=== PATIENT | female | born 1960 | race American Indian/Alaskan Native ===

== ENCOUNTER 2018-02-27 12:40 | Day surgery (SDC) | payer OTHER ==
[2018-02-27] MEDS ORDERED: NACL 0.9% 1000 ML 1,000 ML ONE (13:56)
[2018-02-27] MEDS ORDERED: NACL 0.9% 1000 ML 1,000 ML IV SCH (14:00)
--- NOTE | 2018-02-27 14:36 | Anesthesia Consultation ---
Anesthesia Consult and Med Hx Date of service: 02/27/18 - Airway Anesthetic Teeth Evaluation: Chipped (some chipped teeth in the back) ROM Head & Neck: Adequate Mental/Hyoid Distance: Adequate Mallampati Class: Class II - Pre-Operative Health Status ASA Pre-Surgery Classification: ASA2 Proposed Anesthetic Plan: MAC - Cardiovascular System Hx Hypertension: Yes Hx Coronary Artery Disease: No (high cholesterol) - Other Systems Hx Cancer: No Hx Obesity: Yes (BMI 35.3)
--- NOTE | 2018-02-27 14:36 | Anesthesia Day of Surgery ---
Anesthesia Day of Surgery - Day of Surgery Patient Examined: Yes Patient H&P Reviewed: Yes Patient is NPO: Yes
[2018-02-27] MEDS ORDERED: DIPRIVAN 10 MG/ML IV ONE ×3 (16:08→16:22)
--- NOTE | 2018-02-27 17:01 | Post Anesthesia Evaluation ---
- Post Anesthesia Evaluation Patient Participated: Yes Airway Patent: Yes Stable Respiratory Function: Yes Nausea/Vomiting: Yes Temp > 96.8F: Yes Pain Manageable: Yes Adequeate Hydration: Yes Anesthesia Complications: No Block Receding Appropriately: Not Applicable Patient on Ventilator: No
[2018-02-27 17:13] VITALS: BP 112/78
--- NOTE | 2018-02-27 19:20 | Discharge Summary ---
Short Stay Discharge Plan Weight Bearing Status: Weight Bear as Tolerated Diet: regular Additional Instructions: Post Sedation D/C Instructions When you return home you may resume your regular diet unless otherwise directed. -Go directly home from the hospital and rest quietly. You may resume normal activities tomorrow. -Do NOT drive, return to work, operate any machinery or make any important personal or business decisions today. -Do NOT drink any alcohol or take nerve or sleeping drugs. They add to the effects of the medicine still present in your body. CALL FOR F/U APPT. Follow up with: SAMMY NOLAND MD [Primary Care Provider] - 7 Days
--- NOTE | 2018-02-27 19:20 | Operative Report ---
Operative Report Operative Report: 02/27/2018 Procedure: Colonoscopy with multiple hot biopsy polypectomies, polyp ablations. Attending physician: Titus Gill MD [employer] Arrays: Titus Gill MD Indication: Patient is a 57-year-old female who presents for screening colonoscopy. A colonoscopy service to evaluate patient for colorectal cancer screening.. Consent: Informed consent was obtained after advising the patient and family regarding nature of this procedure, its indications, potential benefits as well as possible complications including but not limited to bleeding perforation and adverse reaction to medication, infection as well as other cardiopulmonary complications. An informed written and verbal consent was then obtained after due opportunity was provided for questions and answers. Monitoring: Patient was monitored continuously with pulse oximetry and electrocardiographic recordings as well as blood pressure recordings. Vital signs remained stable throughout this procedure with no untoward events. Preoperative assessment: Patient was assessed immediately prior to this procedure for capacity to tolerate monitored anesthesia care and moderate sedation as well as general anesthesia. Patient's ASA classification is 2, Mallampati class is 2, Hyomental distance is 3. Instrument: Streamixn video colonoscope Medications: Propofol given intravenously in divided doses. For details please refer to anesthesia records. Description of procedure: Patient was placed in the left lateral decubitus position after achieving sedation, a digital rectal examination was performed following which the colonoscope was introduced into the anal verge and advanced to the cecum which was identified by the cecal valve, the appendiceal orifice, as well as by the cecal strap and direct transillumination. The colonoscope was subsequently withdrawn with careful inspection of all mucosal surfaces. Patient tolerated this procedure well and was subsequently taken to the recovery room. The following findings were noted. Findings: Patient had 7 diminutive polyps in the transverse colon measuring 3-5 mm. These were removed sequentially by hot biopsy polypectomy. All polyp specimens were then retrieved. Patient had 1 flat polyp in the descending colon. This measured approximately 4-5 mm. It was removed by hot biopsy polypectomy and retrieved. Patient had multiple diminutive polyps in the sigmoid colon which were ablated. Patient had 3 polyps also in the sigmoid colon measuring 4-5 mm which were removed by hot biopsy polypectomy and retrieved. Patient had a few scattered diverticula in the sigmoid and descending colon. The ascending colon and cecum were normal. The rectum was normal. On the retroflex view at the anal verge, patient had internal hemorrhoids. Impression: Multiple transverse colon polyp status post hot biopsy polypectomy. Descending colon polyp status post hot biopsy polypectomy. Multiple sigmoid colon polyps status post hot biopsy polypectomy. Multiple sigmoid colon polyps status post ablation. Diverticulosis of the colon. Internal hemorrhoids. Plan: Follow pathology report. High-fiber diet. Repeat colonoscopy in 1 year if the polyps are adenomatous..
== END 2018-02-27 17:10 | disposition home or self-care (01) ==
LOC: GIO 12:40
PROVIDERS: ATTEND Internal Medicine Gastroenterology
DX: Z12.11 Encounter for screening for malignant neoplasm of colon (principal); K63.89 Other specified diseases of intestine; K63.5 Polyp of colon; K57.30 Diverticulosis of large intestine without perforation or abscess without bleeding; K64.8 Other hemorrhoids; E66.9 Obesity, unspecified; I10 Essential (primary) hypertension; E78.00 Pure hypercholesterolemia, unspecified; Z88.0 Allergy status to penicillin; Z88.8 Allergy status to other drugs, medicaments and biological substances; Z98.890 Other specified postprocedural states; Z68.35 Body mass index [BMI] 35.0-35.9, adult
CPT/HCPCS: 45384; 45388; 88305; J2704; J7030

== ENCOUNTER 2022-01-25 14:17 | Emergency (ER) | payer OTHER ==
[2022-01-25] MEDS ORDERED: cloNIDine 0.2 MG TAB PO ONE (19:40)
--- NOTE | 2022-01-25 19:45 | Emergency Department Report ---
HPI - General Chief Complaint: High BP Time Seen by Provider: 01/25/22 19:27 - HPI HPI: MSE 5 The patient is a 61-year-old female present with a chief complaint of anxiety. Patient states she has been suffering from anxiety intermittently since 2018. The patient states over the weekend she had some of her same symptoms. Patient states she feels tingling diffusely but greater on the left side over the weekend as well as a tension headache. Patient states she has been under a lot of stress lately caring after her and brother. Patient states she has not been getting much sleep lately. Patient states "my body felt real tense." The patient states she checked her pulse ox and her sat was 97% on room air but her heart rate had gone up to 112 bpm before resolved. Patient currently denies complaints stating she feels "all right." ED Past Medical Hx - Past Medical History Hx Hypertension: Yes Hx Arthritis: Yes (? KNEES) Hx Psychiatric Treatment: Yes (Anxiety) Additional medical history: Postmenopausal 7 years - Surgical History Past Surgical History?: No Additional Surgical History: C section - Family History Family history: no significant - Social History Smoking Status: Never Smoker Substance Use Type: None (Denies illicit drug use) - Medications Home Medications: Home Medications Medication Instructions Recorded Confirmed Last Taken Type [place]-3/Dha/Epa/Fish Oil [Fish Oil 1 each PO DAILY PRN 02/27/18 05/07/20 5 Days Ago History 1,000 mg Softgel] ~02/22/18 Simvastatin 40 mg PO QHS 05/06/20 05/07/20 Unknown History Acetaminophen [Acetaminophen TAB] 650 mg PO Q4H PRN tablet 05/09/20 Unknown Rx dexAMETHasone [Decadron] 6 mg PO DAILY #5 tablet 05/09/20 Unknown Rx hydrOXYzine PAMOATE [Vistaril] 50 mg PO Q6HR PRN #20 capsule 01/25/22 Unknown R x ED Review of Systems ROS: Stated complaint: RAPID HEART RATE/NUMBNESS LT SIDE Other details as noted in HPI Constitutional: no symptoms reported Eyes: denies: eye pain ENT: denies: throat pain Respiratory: no symptoms reported Cardiovascular: palpitations Endocrine: no symptoms reported Gastrointestinal: denies: nausea, vomiting Genitourinary: denies: dysuria Musculoskeletal: denies: back pain Neurological: headache, paresthesias Physical Exam - Physical Exam Vital Signs: Vital Signs 01/25/22 15:59 Temperature 98.0 F Pulse Rate 64 Respiratory 20 Rate Blood Pressure 182/81 O2 Sat by Pulse 98 Oximetry Vital Signs 01/25/22 01/25/22 01/25/22 15:59 19:59 21:27 Temperature 98.0 F Pulse Rate 64 63 88 Respiratory 20 Rate Blood Pressure 182/81 187/90 Blood Pressure 120/71 [Left] O2 Sat by Pulse 98 Oximetry Physical Exam: GENERAL: The patient is well-developed well-nourished female sitting in chair not appearing to be in acute distress HEENT: Normocephalic. Atraumatic. Extraocular motions are intact. Patient has moist mucous membranes. NECK: Supple. No meningitic signs are noted. Trachea midline CHEST/LUNGS: Clear to auscultation. There is no respiratory distress noted. HEART/CARDIOVASCULAR: Regular. There is no tachycardia. There is no gallop rub or murmur. ABDOMEN: Abdomen is soft, nontender. Patient has normal bowel sounds. There is no abdominal distention. SKIN: There is no rash. There is no edema. There is no diaphoresis. NEURO: The patient is awake, alert, and oriented. The patient is cooperative. The patient has no focal neurologic deficits. The patient has normal speech. Cranial nerves II through XII grossly intact. GCS 15. NIHSS= 0 MUSCULOSKELETAL: There is no evidence of acute injury. ED Course Vital Signs 01/25/22 15:59 Temperature 98.0 F Pulse Rate 64 Respiratory 20 Rate Blood Pressure 182/81 O2 Sat by Pulse 98 Oximetry ED Medical Decision Making - Lab Data Result diagrams: 01/25/22 19:44 01/25/22 19:44 Laboratory Tests 01/25/22 01/25/22 01/25/22 19:44 19:44 19:44 WBC 11.8 H RBC 4.99 Hgb 13.6 Hct 39.4 MCV 79 MCH 27 L MCHC 35 H RDW 15.1 Plt Count 235 Lymph % (Auto) 17.1 [place] % (Auto) 4.5 Eos % (Auto) 1.7 Baso % (Auto) 0.7 Lymph # (Auto) 2.0 [place] # (Auto) 0.5 Eos # (Auto) 0.2 Baso # (Auto) 0.1 Seg Neutrophils % 76.0 H Seg Neutrophils # 9.0 H Sodium 138 Potassium 3.9 Chloride 100.9 Carbon Dioxide 23 Anion Gap 18 BUN 13 Creatinine 0.8 Estimated GFR > 60 BUN/Creatinine Ratio 16 Glucose 110 H Calcium 9.4 Magnesium 1.90 Total Creatine Kinase 124 CK-MB (CK-2) 2.8 CK-MB (CK-2) Rel Index 2.2 Troponin T < 0.010 TSH 2.160 Free T4 1.14 - EKG Data -: EKG Interpreted by Sd EKG shows normal: sinus rhythm, axis Rate: normal - EKG Data When compared to previous EKG there are: previous EKG unavailable Interpretation: other (No ischemic changes seen) - Radiology Data Radiology results: report reviewed (CT head), image reviewed (CT head) [facility] [address] [place] [address] Cat Scan Report Signed Patient: JASPER WOODRUFF MR#: [id number] : 1960 Acct:[id number] Age/Sex: 61 / F ADM Date: 01/25/22 Loc: ED Attending Dr: Ordering Physician: HUMAIRA GOOD MD Date of Service: 01/25/22 Procedure(s): CT head/brain wo con Accession Number(s): [id number] cc: HUMAIRA GOOD MD CT head/brain wo con INDICATION / CLINICAL INFORMATION: 61 years Female; Headache. TECHNIQUE: Routine CT head without contrast. All CT scans at this location are performed using CT dose reduction for ALARA by means of automated exposure control. COMPARISON: None. FINDINGS: BRAIN / INTRACRANIAL CONTENTS: There are subtle foci of calcification within the basal ganglia. Otherwise, the brain appears to demonstrate appropriate attenuation for age. The ventricular system is within normal limits in size and configuration. There is no clear CT evidence of acute intracranial hemorrhage or significant mass effect. ORBITS: No significant abnormality of visualized orbits. SINUSES / MASTOIDS: There is a 1.8 cm rounded retention cyst along the visualized posterior right maxillary sinus. CRANIOCERVICAL JUNCTION: No significant abnormality. ADDITIONAL FINDINGS: None. IMPRESSION: 1. There is no clear CT evidence of acute intracranial process. Signer Name: Greg Lopez MD Signed: 01/25/2022 8:50 PM Workstation Name: [id number] Transcribed By: MR Dictated By: Greg Lopez MD Electronically Authenticated By: Greg Lopez MD Signed Date/Time: 01/25/222049 DD/ 47 TD/TT: - Differential Diagnosis Anxiety, cranial mass, hyperthyroidism, hypertensive urgency Critical care attestation.: If time is entered above; I have spent that time in minutes in the direct care of this critically ill patient, excluding procedure time. ED Disposition Clinical Impression: Anxiety, Stress at home, Hypertension Disposition: HOME / SELF CARE / HOMELESS Is pt being admited?: No Does the pt Need Aspirin: No Condition: Stable Instructions: Hypertension (ED), Hypertension, Adult, Cvga-ex-Cffo Additional Instructions: Return to the emergency department should you develop worsening symptoms, inability to tolerate food or liquids, high fever or any other concerns Prescriptions: hydrOXYzine PAMOATE [Vistaril] 50 mg PO Q6HR PRN #20 capsule PRN Reason: Anxiety Referrals: [facility] [Provider Group] - 3-5 Days Time of Disposition: 21:23
[2022-01-25 20:05] LABS: Basophils # (Auto) 0.1 K/mm3 (0.0-0.1); Basophils % (Auto) 0.7 % (0.0-1.8); Eosinophils # (Auto) 0.2 K/mm3 (0.0-0.4); Eosinophils % (Auto) 1.7 % (0.0-4.3); Hematocrit 39.4 % (30.3-42.9); Hemoglobin 13.6 gm/dl (10.1-14.3); Lymphocytes % (Auto) 17.1 % (13.4-35.0); Mean Corpuscular HGB Conc 35 % (30-34); Mean Corpuscular Volume 79 fl (79-97); Monocytes # (Auto) 0.5 K/mm3 (0.0-0.8); Monocytes % (Auto) 4.5 % (0.0-7.3); Platelet Count 235 K/mm3 (140-440); Red Blood Count 4.99 M/mm3 (3.65-5.03); Red Cell Distribution Width 15.1 % (13.2-15.2)
[2022-01-25 20:26] LABS: BUN/Creatinine Ratio 16; Blood Urea Nitrogen 13 mg/dL (7-17); Calcium 9.4 mg/dL (8.4-10.2); Creatine Kinase MB 2.8 ng/mL (0.0-4.0); Hemolysis Index 14
[2022-01-25 20:32] LABS: Free T4 (Free Thyroxine) 1.14 ng/dL (0.76-1.46)
--- NOTE | 2022-01-25 20:54 | Cat Scan Report ---
CT head/brain wo con INDICATION / CLINICAL INFORMATION: 61 years Female; Headache. TECHNIQUE: Routine CT head without contrast. All CT scans at this location are performed using CT dos e reduction for ALARA by means of automated exposure control. COMPARISON: None. FINDINGS: BRAIN / INTRACRANIAL CONTENTS: There are subtle foci of calcification within the basal ganglia. Other albarran, the brain appears to demonstrate appropriate attenuation for age. The ventricular system is wit hin normal limits in size and configuration. There is no clear CT evidence of acute intracranial hemo rrhage or significant mass effect. ORBITS: No significant abnormality of visualized orbits. SINUSES / MASTOIDS: There is a 1.8 cm rounded retention cyst along the visualized posterior right max illary sinus. CRANIOCERVICAL JUNCTION: No significant abnormality. ADDITIONAL FINDINGS: None. IMPRESSION: 1. There is no clear CT evidence of acute intracranial process. Signer Name: Greg Lopez MD Signed: 01/25/2022 8:50 PM Workstation Name: [id number]
[2022-01-25 21:28] VITALS: BP 120/71
--- NOTE | 2022-01-26 11:52 | Electrocardiograph Report ---
[facility] Test Date: 2022-01-25 Test Time: 16:06:22 Pat Name: JASPER WOODRUFF Department: Room: Gender: F [employer] Classer: KIERRA : 1960 Requested By: HUMAIRA GOOD Order Number: [id number] Reading MD: Haresh Morrow Measurements Intervals [place] Rate: 60 P: 55 SD: 155 QRS: 11 QRSD: 83 T: 54 QT: 425 QTc: 425 Interpretive Statements Sinus rhythm No previous ECG available for comparison Electronically Signed On 01-26-2022 11:52:03 EDT by Haresh Morrow
== END 2022-01-25 21:51 | disposition home or self-care (01) ==
LOC: ED 14:17
DX: F41.9 Anxiety disorder, unspecified (principal); F43.9 Reaction to severe stress, unspecified; I10 Essential (primary) hypertension; M17.10 Unilateral primary osteoarthritis, unspecified knee
CPT/HCPCS: 36415; 70450; 80048; 82550; 82553; 83735; 84439; 84443; 84484; 85025; 93005; 99284